=== PATIENT | female | born 1940 | race Hispanic/Latino ===

== ENCOUNTER 2019-09-05 12:29 | Emergency (ER) | payer MEDICARE, OTHER ==
--- NOTE | 2019-09-05 12:55 | RAD ---
Chest AP view INDICATION: History of Covid positive testing and chest pain COMPARISON: None FINDINGS: Lungs: There are patchy areas of groundglass opacity within the right lower lobe and left upper lung consistent with a pattern that can be seen radiographically in patients with Covid infection. No confluent airspace opacity is evident. Cardiac silhouette: The cardiomediastinal silhouette appears within normal limits. Pulmonary vasculature: Normal Pleural spaces: No pleural effusion or pneumothorax is demonstrated. Upper abdomen: No abnormality seen. Osseous structures: No acute osseous abnormality. Additional findings: None. IMPRESSION: Patchy areas of peripheral groundglass opacities involving the right lower lobe and left upper lobe c onsistent with a pattern seen with Covid infection. Continued radiographic follow-up is recommended.
[2019-09-05 13:18] LABS: #Eosinphils 0.1 thou/uL (0.0-0.7); #Lymphocytes 0.9 thou/uL (1.20-3.40); #Monocytes 0.5 thou/uL (0.11-0.59); #Neutrophils 5.1 thou/uL (1.40-6.50); %Basophils 0.3 % (0.0-1.0); %Eosinophils 1.1 % (0.0-10.0); %Lymphocytes 13.6 % (21.0-51.0); %Monocytes 6.9 % (0.0-10.0); %Neutrophils 78.1 % (42.0-75.0); Hemoglobin 10.4 g/dL (12.0-16.0); Mean Corpuscular Hemoglobin 26.8 pg (27.0-31.0); Mean Corpuscular Volume 83.6 fL (78.0-98.0); Platelet Count 409 thou/uL (130-400); RBC Distribution Width 13.1 % (11.5-14.5); Red Blood Cell (RBC) Count 3.89 mill/uL (4.20-5.40); White Blood Cell (WBC) Count 6.5 thou/uL (4.8-10.8)
[2019-09-05 13:43] LABS: ALT (SGPT) 20 U/L (8-55); AST (SGOT) 26 U/L (5-34); Albumin 3.7 g/dL (3.4-4.8); Alkaline Phosphatase 90 U/L (40-110); Anion Gap 14 mmol/L (10-20); BUN (Urea Nitrogen) 16 mg/dL (9.8-20.1); Bilirubin, Total 0.3 mg/dL (0.2-1.2); Calc. Creatinine Clearance 0 mL/min (70-130); Carbon Dioxide 24 mmol/L (23-31); Chloride 99 mmol/L (98-107); Estimated GFR-MDRD 52; Globulin 4.4 g/dL (2.4-3.5); Glucose 152 mg/dL (83-110); Potassium 3.8 mmol/L (3.5-5.1); Protein, Total 8.1 g/dL (6.0-8.3); Sodium 133 mmol/L (136-145)
[2019-09-05] MEDS ORDERED: Acetaminophen 500 MG TAB ONE (14:21)
[2019-09-05] MEDS ORDERED: Dexamethasone 10 MG/ML VIAL ONE (14:21)
== END 2019-09-05 14:30 | disposition home or self-care (01) ==
LOC: ERS 12:29
DX: U07.1 COVID-19 (principal); I10 Essential (primary) hypertension; E11.9 Type 2 diabetes mellitus without complications; Z79.84 Long term (current) use of oral hypoglycemic drugs; Z79.899 Other long term (current) drug therapy
CPT/HCPCS: 36415; 71045; 80053; 83605; 84484; 85025; 93005; 96374; J1100

== ENCOUNTER 2020-02-28 13:16 | Emergency (ER) | payer MEDICARE ==
--- NOTE | 2020-02-28 13:48 | CT ---
EXAM: CT Brain WO Con PROVIDED CLINICAL HISTORY: Head injury COMPARISON: 03/21/2016 FINDINGS: The ventricular system is unchanged in size and morphology. 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 There is no evidence for intracranial hemorrhage or mass effect. Chronic microvascular ischemic changes are seen involving the cerebral whi te matter. The extracranial soft tissues and osseous structures appear unremarkable. IMPRESSION: No evidence for intracranial hemorrhage or mass effect.
[2020-02-28] MEDS ORDERED: Acetaminophen 500 MG TAB ONE (15:40)
--- NOTE | 2020-02-28 15:50 | RAD ---
EXAM: XR Pelvis AP STANDARD PROVIDED CLINICAL HISTORY: Injury FINDINGS: There is no evidence for fracture or other acute osseous abnormality. Alignment appears anatomic. Kathrine nt spaces appear preserved. IMPRESSION: No evidence for an acute osseous abnormality. If there is persistent clinical concern, conservative m anagement and follow-up imaging advised.
--- NOTE | 2020-02-28 15:51 | RAD ---
EXAM: XR Sacrum and Coccyx STANDARD PROVIDED CLINICAL HISTORY: Injury FINDINGS: There is no evidence for fracture or other acute osseous abnormality. Alignment appears anatomic. Kathrine nt spaces appear preserved. Degenerative changes are seen involving the lumbar spine. IMPRESSION: No evidence for an acute osseous abnormality. If there is persistent clinical concern, conservative m anagement and follow-up imaging advised.
== END 2020-02-28 16:06 | disposition home or self-care (01) ==
LOC: ERS 13:16
DX: S00.03XA Contusion of scalp, initial encounter (principal); S30.0XXA Contusion of lower back and pelvis, initial encounter; W01.198A Fall on same level from slipping, tripping and stumbling with subsequent striking against other object, initial encounter; I10 Essential (primary) hypertension; E11.9 Type 2 diabetes mellitus without complications
CPT/HCPCS: 70450; 72170; 72220

== ENCOUNTER 2020-11-22 11:22 | Outpatient (CLI) | payer MEDICARE | END 2020-11-22 11:23 | disposition home or self-care (01) | LOC: DTY/OP 11:22 | PROVIDERS: ATTEND Family Medicine | DX: E11.9 Type 2 diabetes mellitus without complications (principal) | CPT/HCPCS: 97802 ==

== ENCOUNTER 2023-02-08 11:40 | Inpatient (IN) | payer MEDICARE, OTHER ==
[2023-02-08] MEDS ORDERED: Acetaminophen 500 MG TAB ONE (12:23)
[2023-02-08 12:44] LABS: #Eosinphils 0.1 thou/uL (0.0-0.7); #Monocytes 0.4 thou/uL (0.11-0.59); #Neutrophils 2.6 thou/uL (1.40-6.50); %Basophils 0.3 % (0.0-1.0); %Eosinophils 1.8 % (0.0-10.0); %Monocytes 10.7 % (0.0-10.0); %Neutrophils 67.9 % (42.0-75.0); Hematocrit 33.9 % (36.0-47.0); Hemoglobin 10.4 g/dL (12.0-16.0); Mean Corpuscular HGB CONC 30.7 g/dL (32.0-36.0); Mean Corpuscular Hemoglobin 26.8 pg (27.0-31.0); Mean Corpuscular Volume 87.4 fl (78.0-98.0); Mean Platelet Volume 9.7 fL (7.4-10.4); Platelet Count 215 10x3/uL (130-400); RBC Distribution Width 15.2 % (11.5-14.5); Red Blood Cell (RBC) Count 3.88 mill/uL (4.20-5.40); White Blood Cell (WBC) Count 3.8 10x3/uL (4.8-10.8)
[2023-02-08 13:11] LABS: Troponin I Less than 0.010 ng/mL (< 0.028)
[2023-02-08 13:14] LABS: ALT (SGPT) 11 U/L (8-55); AST (SGOT) 23 U/L (5-34); Albumin 3.7 g/dL (3.4-4.8); Alkaline Phosphatase 91 U/L (40-110); Anion Gap 15 mmol/L (10-20); BUN (Urea Nitrogen) 30 mg/dL (9.8-20.1); Bilirubin, Total 0.2 mg/dL (0.2-1.2); Calc. Creatinine Clearance 0 mL/min (70-130); Calcium 8.1 mg/dL (7.8-10.44); Carbon Dioxide 15 mmol/L (23-31); Chloride 109 mmol/L (98-107); Estimated GFR 20; Globulin 3.1 g/dL (2.4-3.5); Glucose 105 mg/dL (83-110); Lipase 49 U/L (8-78); Potassium 3.6 mmol/L (3.5-5.1); Protein, Total 6.8 g/dL (5.8-8.1); Sodium 135 mmol/L (136-145)
[2023-02-08 14:29] LABS: Bacteria/HPF None Seen HPF (None Seen); Bilirubin Negative (Negative); Blood, Urine Trace (Negative); CAUTI Indications for Culture Dysuria,urgency,freq; Clarity Turbid (Clear); Glucose, Urine (Dipstick) 100 mg/dL (Negative); Ketone, Urine Negative (Negative); Leukocyte 25 Leu/uL (Negative); Nitrite Negative (Negative); Protein, Urine (Dipstick) 50 mg/dL (Neg-Trace); RBC/HPF 0-3 HPF (0-3); Specific Gravity, Urine 1.012 (1.002-1.036); Urobilinogen Normal mg/dL (Less than 2)
[2023-02-08] MEDS ORDERED: cefTRIAXone (ROCEPHIN) 1 GM VIAL ONE (15:14)
[2023-02-08] MEDS ORDERED: Sodium Chloride 0.9% 100 ML ONE (15:14)
[2023-02-08 15:19] LABS: Urine Culture Reflex Yes Yes
[2023-02-08] MEDS ORDERED: HumaLOG 300 UNITS/3 ML VIAL SC PRN (15:40)
[2023-02-08] MEDS ORDERED: Dextrose 50% Abboject 50 ML SYRINGE SLOW IVP PRN (15:40)
[2023-02-08] MEDS ORDERED: Glucagon 1 MG/ML KIT IM PRN (15:40)
[2023-02-08] MEDS ORDERED: Dextrose 5% in Water 1,000 ML IV PRN (15:40)
[2023-02-08 16:59] VITALS: BMI 25.9
[2023-02-08] MEDS ORDERED: FLU VACC QS2023(65UP)/MF59C/PF 60 MCG/0.5 ML SYRINGE IM ONE (17:15)
[2023-02-08] MEDS: Sodium Chloride 0.9% 1,000 ML IV SCH (17:22)
[2023-02-08] MEDS ORDERED: Lidocaine 2% Viscous Solution 10 ML, Aluminum & Magnesium Hydroxide 30 ML SSW SCH (22:00)
[2023-02-09] MEDS: Sodium Chloride 0.9% 1,000 ML IV SCH (01:33)
[2023-02-09 05:28] LABS: #Eosinphils 0.1 thou/uL (0.0-0.7); #Monocytes 0.3 thou/uL (0.11-0.59); #Neutrophils 1.7 thou/uL (1.40-6.50); %Basophils 0.3 % (0.0-1.0); %Eosinophils 2.1 % (0.0-10.0); %Lymphocytes 29.2 % (21.0-51.0); %Monocytes 11.3 % (0.0-10.0); %Neutrophils 56.8 % (42.0-75.0); Hematocrit 29.4 % (36.0-47.0); Hemoglobin 8.9 g/dL (12.0-16.0); Mean Corpuscular HGB CONC 30.3 g/dL (32.0-36.0); Mean Corpuscular Volume 89.1 fl (78.0-98.0); Mean Platelet Volume 9.4 fL (7.4-10.4); Platelet Count 203 10x3/uL (130-400); RBC Distribution Width 14.9 % (11.5-14.5); White Blood Cell (WBC) Count 2.9 10x3/uL (4.8-10.8)
[2023-02-09 05:49] LABS: Anion Gap 10 mmol/L (10-20); BUN (Urea Nitrogen) 21 mg/dL (9.8-20.1); Calc. Creatinine Clearance 33 mL/min (70-130); Calcium 7.6 mg/dL (7.8-10.44); Carbon Dioxide 15 mmol/L (23-31); Chloride 119 mmol/L (98-107); Estimated GFR 34; Glucose 86 mg/dL (83-110); Potassium 3.4 mmol/L (3.5-5.1); Sodium 141 mmol/L (136-145)
[2023-02-09] MEDS ORDERED: HumaLOG 300 UNITS/3 ML VIAL SC PRN ×2 (08:46)
[2023-02-09] MEDS ORDERED: Glucagon 1 MG/ML KIT IM PRN (08:46)
[2023-02-09] MEDS: Metoprolol Tartrate 25 MG TAB PO SCH ×2 (09:54→20:38)
[2023-02-09] MEDS: Clopidogrel Bisulfate 75 MG TAB PO SCH (09:55)
[2023-02-09] MEDS: 1/2 NS w/KCL 20 mEq 1,000 ML IV SCH (13:22)
[2023-02-09] MEDS: cefTRIAXone\\ROCEPHIN 1 GM in Sodium Chloride 0.9% 100 ML IVPB SCH (15:48)
[2023-02-09] MEDS: Atorvastatin Calcium 40 MG TAB PO SCH (20:38)
[2023-02-10] MEDS: 1/2 NS w/KCL 20 mEq 1,000 ML IV SCH (03:34)
[2023-02-10] MEDS: Levothyroxine Sodium 112 MCG TAB PO SCH (05:55)
[2023-02-10] MEDS: Metoprolol Tartrate 25 MG TAB PO SCH ×2 (08:54→20:05)
[2023-02-10] MEDS: Clopidogrel Bisulfate 75 MG TAB PO SCH (08:54)
[2023-02-10] MEDS: cefTRIAXone\\ROCEPHIN 1 GM in Sodium Chloride 0.9% 100 ML IVPB SCH (14:57)
[2023-02-10] MEDS: Loperamide HCl 2 MG CAP PO PRN ×2 (16:55→20:05)
[2023-02-10] MEDS: Atorvastatin Calcium 40 MG TAB PO SCH (20:04)
[2023-02-11] MEDS: Levothyroxine Sodium 112 MCG TAB PO SCH (05:16)
[2023-02-11 06:02] LABS: Anion Gap 10 mmol/L (10-20); BUN (Urea Nitrogen) 8 mg/dL (9.8-20.1); Calc. Creatinine Clearance 49 mL/min (70-130); Calcium 7.8 mg/dL (7.8-10.44); Carbon Dioxide 18 mmol/L (23-31); Chloride 117 mmol/L (98-107); Estimated GFR 55; Glucose 83 mg/dL (83-110); Potassium 3.6 mmol/L (3.5-5.1); Sodium 141 mmol/L (136-145)
[2023-02-11 07:35] VITALS: BP 137/66; TEMP 97.7
[2023-02-11] MEDS: Metoprolol Tartrate 25 MG TAB PO SCH (08:51)
[2023-02-11] MEDS: Clopidogrel Bisulfate 75 MG TAB PO SCH (08:51)
[2023-02-11] MEDS: cefTRIAXone\\ROCEPHIN 1 GM in Sodium Chloride 0.9% 100 ML IVPB SCH (15:24)
== END 2023-02-11 16:55 | disposition home or self-care (01) | DRG 683 ==
LOC: ERS 11:40 → MSONC 14:49 → OBSVTOIN 02-09 13:45
PROVIDERS: ADMIT Internal Medicine; ATTEND Nurse Practitioner Family
DX: N17.9 Acute kidney failure, unspecified (principal); N39.0 Urinary tract infection, site not specified; A08.4 Viral intestinal infection, unspecified; E03.9 Hypothyroidism, unspecified; I10 Essential (primary) hypertension; E78.5 Hyperlipidemia, unspecified; E11.65 Type 2 diabetes mellitus with hyperglycemia; Z79.899 Other long term (current) drug therapy; I69.312 Visuospatial deficit and spatial neglect following cerebral infarction
CPT/HCPCS: 36415; 36416; 71045; 74176; 80048; 80053; 81001; 83690; 84484; 85025; 87086; 87324; 87449; 93005; 96361; 96365; J0696; J3480; J3490; J7050

== ENCOUNTER 2023-08-20 09:13 | Outpatient (CLI) | payer MEDICARE | END 2023-08-20 09:14 | disposition home or self-care (01) | LOC: BICRAD 09:13 | PROVIDERS: ATTEND Family Medicine | DX: J06.9 Acute upper respiratory infection, unspecified (principal); R53.83 Other fatigue | CPT/HCPCS: 36415; 71046; 80053; 85025; 87070 ==

== ENCOUNTER 2024-08-26 11:13 | Outpatient (CLI) | payer MEDICARE, OTHER | END 2024-08-26 11:14 | disposition home or self-care (01) | LOC: RAD 11:13 | PROVIDERS: ATTEND Neurological Surgery | DX: S32.019D Unspecified fracture of first lumbar vertebra, subsequent encounter for fracture with routine healing (principal); M47.816 Spondylosis without myelopathy or radiculopathy, lumbar region; S22.080D Wedge compression fracture of T11-T12 vertebra, subsequent encounter for fracture with routine healing | CPT/HCPCS: 72100 ==